=== PATIENT | male | born 1965 | race Caucasian/White ===

== ENCOUNTER → 2022-08-19 | Outpatient (CLI) | payer OTHER | LOC: LAB SHORT 08:35 → LAB 08:35 | DX: J02.9 Acute pharyngitis, unspecified (principal) | CPT/HCPCS: 87081; 87147 ==

== ENCOUNTER 2023-08-01 18:53 | Emergency (ER) | payer OTHER ==
[~2023-08-01] VITALS: Ht 188 cm; Wt 99.8 kg
[2023-08-01] MEDS ORDERED: CYCL10 PO (23:50)
[2023-08-02] VITALS: BP 129/77
== END 2023-08-01 23:57 | disposition home or self-care (01) ==
LOC: ER 18:53
DX: M54.50 Low back pain, unspecified (principal); M54.2 Cervicalgia; V43.62XA Car passenger injured in collision with other type car in traffic accident, initial encounter; I48.91 Unspecified atrial fibrillation
CPT/HCPCS: 70450; 71260; 72080; 72125; 74177; 93005; 93010; 96374; 96375; 99284-25; J1170; J1885; J2405; Q9967